=== PATIENT | male | born 1990 | race American Indian/Alaskan Native ===

== ENCOUNTER 2016-11-26 21:50 | Emergency (ER) | payer BC, OTHER ==
[2016-11-26 22:29] VITALS: BP 111/57
== END 2016-11-26 23:47 | disposition left against medical advice (07) ==
LOC: DL.ED 21:50
DX: Z53.21 Procedure and treatment not carried out due to patient leaving prior to being seen by health care provider (principal)

== ENCOUNTER 2021-09-07 23:29 | Emergency (ER) | payer OTHER ==
[2021-09-07] MEDS ORDERED: fentaNYL 100 MCG/2 ML SDV IV ONE ×2 (23:30)
[2021-09-07] MEDS ORDERED: LORAZEPAM IV ONE (23:30)
[2021-09-07] MEDS ORDERED: Metoprolol Tartrate 5 MG/5 ML SDV IV ONE (23:30)
[2021-09-07] MEDS ORDERED: Lactated Ringers 1,000 ML IV ONE (23:30)
[2021-09-07] MEDS ORDERED: SODIUM CHLORIDE 0.9% IV ONE (23:30)
[2021-09-07] MEDS ORDERED: Sodium Chloride 0.9% 1,000 ML IV ONE (23:30)
[2021-09-07] MEDS ORDERED: EPINEPHrine 1:10,000 1 MG/10 ML Syringe IV ONE (23:30)
[2021-09-07] MEDS ORDERED: Norepinephrine 4 MG/4 ML SDV ONE (23:41)
[2021-09-08] MEDS ORDERED: LORazepam 2 MG/ML SDV ONE ×2 (00:18→00:30)
[2021-09-08 00:23] LABS: ANION GAP 26.2 mEq/L (7-13); CHLORIDE,CL 100 mmol/L (98-107); SODIUM,NA 142 mmol/L (136-145)
[2021-09-08 00:30] LABS: AMPHETAMINES,URINE NEGATIVE (NEGATIVE); BARBITURATES,URINE NEGATIVE (NEGATIVE); BENZODIAZEPINE,URINE NEGATIVE (NEGATIVE); MDMA (ECSTASY), URINE NEGATIVE (NEGATIVE); METHADONE,URINE NEGATIVE (NEGATIVE); METHAMPHETAMINES,URINE NEGATIVE (NEGATIVE); OPIATES,URINE NEGATIVE (NEGATIVE); OXYCODONE,URINE NEGATIVE (NEGATIVE); PHENCYCLIDINE,URINE NEGATIVE (NEGATIVE); TCA,URINE NEGATIVE (NEGATIVE)
[2021-09-08 00:33] LABS: ESTIMATED GFR 46 mL/min (>=60)
[2021-09-08] MEDS ORDERED: fentaNYL 100 MCG/2 ML SDV ONE (00:47)
[2021-09-08] MEDS ORDERED: Insulin Regular, Human 100 Units/ML 3 ML Vial IV ONE (01:02)
[2021-09-08] MEDS ORDERED: Glucagon,Human Recombinant 1 MG Vial IM PRN (01:02)
[2021-09-08] MEDS ORDERED: 50% Dextrose in Water 50 ML Syringe IVPUSH PRN (01:02)
[2021-09-08] MEDS ORDERED: Metoprolol Tartrate 5 MG/5 ML SDV IVPUSH ONE (01:28)
[2021-09-08] MEDS ORDERED: fentaNYL 500 MCG in Sodium Chloride 0.9% 50 ML IV SCH (02:00)
[2021-09-08] MEDS ORDERED: fentaNYL 100 MCG/2 ML SDV IVPUSH ONE (02:04)
== END 2021-09-08 02:47 ==
LOC: DL.ED 23:29
DX: T71.162A Asphyxiation due to hanging, intentional self-harm, initial encounter (principal)
CPT/HCPCS: 31500; 36415; 71045; 72020; 80053; 80305; 80307; 81001; 82947; 85025; 93010; 96365; 96367; 96375; 96376; 99285; J0171; J1815; J2060; J3010; J3490; J7030; J7060; J7120